=== PATIENT | female | born 1965 | race Caucasian/White ===

== ENCOUNTER 2018-07-10 14:46 | Emergency (ER) | payer MEDICAID ==
[~2018-07-10] VITALS: Ht 162.6 cm; Wt 68.2 kg
[2018-07-10 14:49] VITALS: BP 124/85
[2018-07-10] MEDS ORDERED: BLOOD PRESSURE PO (14:55)
== END 2018-07-10 18:00 | disposition home or self-care (01) ==
LOC: EMS 14:47
DX: F41.9 Anxiety disorder, unspecified (principal); R11.0 Nausea; R42 Dizziness and giddiness; I10 Essential (primary) hypertension
CPT/HCPCS: 99284